=== PATIENT | female | born 1945 | race Two or more races ===

== ENCOUNTER 2018-09-14 07:12 | Inpatient (IN) | END 2018-09-17 20:20 | disposition home or self-care (01) | DRG 871 | DX: A41.9 Sepsis, unspecified organism (principal); J18.9 Pneumonia, unspecified organism; J96.01 Acute respiratory failure with hypoxia; I21.A1 Myocardial infarction type 2; J44.0 Chronic obstructive pulmonary disease with (acute) lower respiratory infection; I47.1 Supraventricular tachycardia; S42.202P Unspecified fracture of upper end of left humerus, subsequent encounter for fracture with malunion; F03.90 Unspecified dementia, unspecified severity, without behavioral disturbance, psychotic disturbance, mood disturbance, and anxiety; F32.9 Major depressive disorder, single episode, unspecified; E78.5 Hyperlipidemia, unspecified; I48.91 Unspecified atrial fibrillation; Z66 Do not resuscitate; Z85.3 Personal history of malignant neoplasm of breast; Z87.891 Personal history of nicotine dependence; Z95.2 Presence of prosthetic heart valve; I50.9 Heart failure, unspecified; I11.0 Hypertensive heart disease with heart failure; D50.9 Iron deficiency anemia, unspecified; L30.8 Other specified dermatitis; R56.9 Unspecified convulsions; Y93.9 Activity, unspecified; L98.8 Other specified disorders of the skin and subcutaneous tissue; X58.XXXD Exposure to other specified factors, subsequent encounter ==